=== PATIENT | male | born 1995 | race African-American/Black ===

== ENCOUNTER 2017-12-04 12:31 | Emergency (ER) | payer OTHER ==
[~2017-12-04] VITALS: Ht 177.8 cm; Wt 81.6 kg
[2017-12-04 12:35] VITALS: BP_SYST 128
[2017-12-04 13:04] VITALS: BP_SYST 119
== END 2017-12-04 13:04 ==
LOC: SED 12:31
DX: F12.10 Cannabis abuse, uncomplicated (principal); G89.29 Other chronic pain; M54.5 Low back pain
CPT/HCPCS: 99283